=== PATIENT | female | born 1945 | race Caucasian/White ===

== ENCOUNTER 2017-03-23 07:22 | Emergency (ER) | payer MEDICARE, OTHER ==
[~2017-03-23] VITALS: Ht 157.5 cm; Wt 77.1 kg
[2017-03-23] MEDS ORDERED: SODIUM CHLORIDE 0.9% 1000ML 1,000 ML IV ONE ×2 (08:00→11:00)
[2017-03-23] MEDS ORDERED: ATENOLOL50 MG (11:54)
[2017-03-23] MEDS ORDERED: ATORVASTATIN CA20 MG PO (11:54)
[2017-03-23 13:16] VITALS: BP 150/76
== END 2017-03-23 13:00 | disposition home or self-care (01) ==
LOC: FSED 07:22
DX: K52.9 Noninfective gastroenteritis and colitis, unspecified (principal); E86.0 Dehydration; R03.0 Elevated blood-pressure reading, without diagnosis of hypertension
CPT/HCPCS: 80048; 99283; J7030

== ENCOUNTER 2021-07-22 15:42 | Emergency (ER) | payer MEDICARE, OTHER ==
[~2021-07-22] VITALS: Ht 157.5 cm; Wt 72.6 kg
[~2021-07-22 15:42] MED LIST: ATENOLOL50 MG; ATORVASTATIN CA20 MG PO
== END 2021-07-22 17:33 | disposition home or self-care (01) ==
LOC: FSED 15:49
DX: S93.601A Unspecified sprain of right foot, initial encounter (principal); S93.401A Sprain of unspecified ligament of right ankle, initial encounter; I10 Essential (primary) hypertension; Z89.612 Acquired absence of left leg above knee; W18.39XA Other fall on same level, initial encounter; Z88.0 Allergy status to penicillin; Z79.899 Other long term (current) drug therapy
CPT/HCPCS: 99283

== ENCOUNTER 2022-02-20 14:37 | Emergency (ER) | payer MEDICARE, OTHER ==
[~2022-02-20] VITALS: Ht 157.5 cm; Wt 71.2 kg
[2022-02-20] MEDS ORDERED: ALBUTEROL/IPRATROPIUM 3 ML NEB ONE (15:44)
[2022-02-20] MEDS ORDERED: ALBUTEROL/IPRATROPIUM 3 ML NEB NEB ONE (15:45)
[2022-02-20] MEDS ORDERED: MEDROL4 MG PO (17:11)
[2022-02-20] MEDS ORDERED: PROVENTIL HFA6.7 GM INH (17:12)
[2022-02-20] MEDS ORDERED: ALBUTEROL2.5 MG/3 M INH (17:13)
[2022-02-20] MEDS ORDERED: COMP-AIR NEBUL1 EACH INH (17:18)
[2022-02-20 17:32] VITALS: BP 180/75
== END 2022-02-20 17:33 | disposition home or self-care (01) ==
LOC: FSED 14:49
DX: R05.9 Cough, unspecified (principal); J06.9 Acute upper respiratory infection, unspecified; J98.01 Acute bronchospasm; Z20.822 Contact with and (suspected) exposure to COVID-19
CPT/HCPCS: 71046; 87400; 99283; U0002